=== PATIENT | female | born 1975 | race African-American/Black ===

== ENCOUNTER 2019-02-07 06:39 | Emergency (ER) | payer BC, OTHER ==
--- NOTE | 2019-02-07 07:34 | EDM.PDOC ---
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 Had pain, but was able to finish her shift. This morning pain is worse. Pain is mostly in right anterior shoulder. Radiates down arm with movement. No numbness/tingling. No history of similar injury to shoulder in past. No other complaints. Was sent to ER by work site for evaluation. Right Shoulder Pain Score (Numeric/FACES): 7 - Related Data Allergies Allergy/AdvReac Type Severity Reaction Status Date / Time lisinopril Allergy Cough Verified 02/07/19 06:40 Home Meds: Home Meds Albuterol [Proventil HFA] 2 puff INH Q4H PRN 05/23/18 [History] Losartan [Cozaar] 100 mg PO DAILY 05/23/18 [History] amLODIPine Besylate [Norvasc] 5 mg PO QPM #30 tablet 05/23/18 [Rx] diphenhydrAMINE HCl [Benadryl Allergy] 25 mg PO DAILY PRN 05/23/18 [History] Escitalopram Oxalate [Lexapro] 5 mg PO DAILY 02/07/19 [History] Temazepam 15 mg PO BEDTIME PRN 02/07/19 [History] Past Medical History HEENT History: Reports: Allergic Rhinitis. Denies: Glaucoma, Hard of Hearing, Impaired Vision, Macular Degeneration, Retinal Detachment Cardiovascular History: Reports: Hypertension, Other (See Below). Denies: Afib , Aneurysm, Arrhythmia, Blood Clots/VTE/DVT, CAD, Heart Murmur, High Cholesterol , [place], Syncope Other Cardiovascular History: Patient does not know her cholesterol status. Respiratory History: Reports: Asthma, Bronchitis, Recurrent, Intubation, Previous. Denies: COPD, Intubation, Difficult, PE, Pneumothorax, Sleep Apnea, TB Gastrointestinal History: Reports: None, Gastritis, PUD. Denies: Celiac Disease , Cholelithiasis, Chronic Constipation, Chronic Diarrhea, Fecal Incontinence, GERD, GI Bleed, Hepatitis, Hiatal Hernia, Inflammatory Bowel Disease, Irritable Bowel Syndrome, Jaundice, Pancreatitis Other Gastrointestinal History: Peptic ulcer disease as a child not currently a problem Genitourinary History: Reports: Renal Calculus, UTI, Recurrent, Other (See Below ). Denies: Acute Renal Failure, Chronic Renal Insuffiency, STD, Urinary Incontinence Other Genitourinary History: Right-sided urolithiasis in her early 30s with spontaneous passage. 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 GOVERNMENT GUARD History: Reports: Endometriosis, Other GOVERNMENT GUARD History: Full term with first with gestational diabetes and borderline macrosomia requiring at full-term with second . Surgical menopause secondary to her endometriosis. Musculoskeletal History: Reports: Arthritis, Back Pain, Chronic, Osteoarthritis. Denies: Amputation, Fracture, Gout, Neck Pain, Chronic, RA, SLE Neurological History: Reports: Headaches, Chronic, Migraines. Denies: Cerebral Aneurysms, Concussion, CVA, Head Trauma, MS, Parkinson's, Seizure, TIA, Vertigo Psychiatric History: Reports: Addiction, Anxiety, Depression, Psych Hospitalization(s), Suicide Attempt, Suicidal Ideation, Other (See Below). Denies: Abuse, Victim of, ADD, ADHD, PTSD Other Psychiatric History: Suicide attempt at age 17 with attempted overdose and required inpatient hospitalization. Illicit drug use as below between ages 19 and 28. Endocrine/Metabolic History: Reports: Diabetes, Gestational. Denies: Diabetes, Type I, Diabetes, Type II, Diabetes Mellitus, Type 3c, Hypothyroidism, IDDM Hematologic History: Reports: Anemia, Iron Deficiency, Other (See Below). Denies: Blood Transfusion(s) Other Hematologic History: Anemia with endometriosis however resolved since hysterectomy. Immunologic History: Reports: None. Denies: AIDS, HIV, SLE Oncologic (Cancer) History: Reports: None. Denies: Basal Cell Carcinoma, Cervix , Colon, Hodgkin's Lymphoma, Leukemia, Lymphoma, Malignant Melanoma, Non-Hodgkin 's Lymphoma, Ovarian, Squamous Cell Carcinoma, Uterine Dermatologic History: Reports: Eczema. Denies: Psoriasis - Infectious Disease History Infectious Disease History: Reports: Chicken Pox. Denies: C-Difficile, Measles , Meningitis, Mononucleosis, MRSA, Mumps, Pertussis (Whooping Cough), Rubella, Scarlet Fever, Shingles, TB, VRE - Past Surgical History Head Surgeries/Procedures: Reports: None HEENT Surgical History: Reports: None. Denies: Adenoidectomy, Cataract Surgery , Eye Surgery, Laser Surgery, LASIK, Myringotomy w Tube(s), Naso-Sinus Surgery, Oral Surgery, Tonsillectomy Cardiovascular Surgical History: Reports: None. Denies: Varicose Respiratory Surgical History: Reports: None. Denies: Thoracentesis Female Surgical History: Reports: Breast Biopsy, Hysterectomy, Salpingo- Oophorectomy, Tubal Ligation, Other (See Below). Denies: D&C Other Female Surgeries/Procedures: Bilateral tubal ligation at age 26. Complete hysterectomy with right-sided salpingo-oophorectomy secondary to endometriosis on 05/15/17. Endocrine Surgical History: Reports: None. Denies: Thyroid Biopsy Neurological Surgical History: Reports: None. Denies: C-Spine, Discectomy, Laminectomy, Lumbar Spine, Sacral Spine, Spinal Fusion, Thoracic Spine, Vertebroplasty Musculoskeletal Surgical History: Reports: None. Denies: Arthroscopic Procedure , Carpal Tunnel, Ganglion Cyst, Joint Replacement, ORIF, Shoulder Surgery Oncologic Surgical History: Reports: None Dermatological Surgical History: Reports: None - Past Imaging History Past Imaging History: Reports: None. Denies: Mammogram Social & Family History - Caffeine Use Caffeine Use: Reports: Soda (2 sodas per week). 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 ED EXAM, GENERAL - Physical Exam Exam: See Below Exam Limited By: No Limitations General Appearance: Alert, WD/WN, No Apparent Distress Eye Exam: Bilateral Eye: EOMI Throat/Mouth: Normal Voice, No Airway Compromise Head: Atraumatic, Normocephalic Neck: Supple, Non-Tender Respiratory/Chest: No Respiratory Distress, Lungs Clear, Normal Breath Sounds, No Accessory Muscle Use, Other (Tender over area of right pectoral muscle, reprouces pain complaint) Cardiovascular: Regular Rate, Rhythm, No Murmur GI/Abdominal: Soft, Non-Tender (Female) Exam: Deferred Rectal (Female) Exam: Deferred Back Exam: Normal Inspection. No: CVA Tenderness (L), CVA Tenderness (R), Muscle Spasm, Paraspinal Tenderness, Vertebral Tenderness Extremities: Other (patient retains full ROM of right arm/shoulder, however has to move slower through ROM exam due to pain in right anterior shoulder area. Pain with palpation over anterior deltoid area and anterior rotator cuff as well as right pec muscle. Rest of arm and posterior shoulder non-tender. Pocket Setter strength equal bilaterally. ) Neurological: Alert, Oriented, Normal Cognition, Normal Gait Psychiatric: Normal Affect, Normal Mood Skin Exam: Warm, Dry, Intact, Normal Color Course - Vital Signs Last Recorded V/S: Last Vital Signs Temp 36.8 C 02/07/19 06:45 Pulse 67 02/07/19 06:45 Resp 17 02/07/19 06:45 BP 145/90 H 02/07/19 06:45 Pulse Ox 99 02/07/19 06:45 - Orders/Labs/Meds Orders: Active Orders 24 hr Category Date Time Status Shoulder Comp Rt [CR] Stat Exams 02/07/19 06:51 Taken - Re-Assessments/Exams Free Text/Narrative Re-Assessment/Exam: Xray of shoulder unremarkable. Pending Radiology review. Suspect soft tissue injury based on history and exam. Cannot rule out tendon/ligament injury vs muscle tear. Appears to have main issue concentrated in right pectoral muscle area and where it attaches near shoulder. Conservative treatment at this time. No work until rechecked on Saturday at local clinic or if needed, Ortho walk in [facility]. Arm placed in sling for comfort of shoulder. Precautions reviewed. To follow up otherwise as needed if additional problems develop. Departure - Departure Time of Disposition: 07:32 Disposition: Home, Self-Care 01 Condition: Good Clinical Impression: Right shoulder pain - Discharge Information *PRESCRIPTION DRUG MONITORING PROGRAM REVIEWED*: Not Applicable *COPY OF PRESCRIPTION DRUG MONITORING REPORT IN PATIENT MARCE: Not Applicable Instructions: Shoulder Pain Referrals: Samantha Nassar LAUNDRY ASSISTANT [Primary Care Provider] - Forms: ED Department Discharge, ED Return to Work/School Form Additional Instructions: Wear sling for comfort. Aleve two tabs every 12 hours to help with pain and inflammation. May also take Tylenol. Do not take ibuprofen with the Aleve. Follow up Saturday for recheck locally at clinic. If you cannot get an appointment you can go to walk-in Ortho clinic in [place] at [facility] or [facility] ( [facility] has access to your xrays). They can re-examine your shoulder at that time and determine if you can return to work or if you needed additional time off and/or other imaging studies. - My Orders Last 24 Hours: My Active Orders 02/07/19 06:51 Shoulder Comp Rt [CR] Stat - Assessment/Plan Last 24 Hours: My Active Orders 02/07/19 06:51 Shoulder Comp Rt [CR] Stat
== END 2019-02-07 08:00 | disposition home or self-care (01) ==
LOC: LL.ED 06:39
DX: M25.511 Pain in right shoulder (principal); I10 Essential (primary) hypertension; Z98.51 Tubal ligation status; Z90.710 Acquired absence of both cervix and uterus; Z90.721 Acquired absence of ovaries, unilateral; F41.9 Anxiety disorder, unspecified; F32.9 Major depressive disorder, single episode, unspecified; Z79.899 Other long term (current) drug therapy; Z88.8 Allergy status to other drugs, medicaments and biological substances; X50.0XXA Overexertion from strenuous movement or load, initial encounter; Y99.0 Civilian activity done for income or pay
CPT/HCPCS: 73030-RT; 99283-25

== ENCOUNTER 2019-07-11 19:28 | Emergency (ER) | payer BC ==
[2019-07-11] MEDS ORDERED: Albuterol/Ipratropium 3.0-0.5 MG/3 ML Neb Soln NEB ONE (19:40)
[2019-07-11] MEDS ORDERED: methylPREDNISolone Sodium Succinate 125 MG/2 ML SDV IM ONE (20:09)
[2019-07-11] MEDS ORDERED: Codeine/guaiFENesin 100-10 MG/5 ML Syrup 5 ML Cup PO ONE (20:10)
[2019-07-11 20:14] LABS: CHLORIDE,CL 102 mmol/L (98-107); SODIUM,NA 141 mmol/L (136-145)
[2019-07-11] MEDS ORDERED: Benzonatate 100 MG Cap PO ONE (20:20)
[2019-07-11] MEDS ORDERED: Metoprolol Tartrate 25 MG Tab PO ONE (20:21)
--- NOTE | 2019-07-11 20:22 | EDM.PDOC ---
ED HPI GENERAL MEDICAL PROBLEM - General Chief Complaint: Asthma Stated Complaint: cough Time Seen by Provider: 07/11/19 20:03 Source of Information: Reports: Patient History Limitations: Reports: No Limitations - History of Present Illness INITIAL COMMENTS - FREE TEXT/NARRATIVE: Patient here for constant cough that started yesterday. Has asthma. Previous similar episodes experienced in past. Has Combivent at home per self report but per patient it has apparently run out and is not working. Possible URI developing. Gums are irritated/ears uncomfortable. No fever/chills. Cough is dry. No other acute changes reported. Is a daily smoker. Treatments FUNERAL HOME LOCATION MANAGER: Reports: Other (see below) Other Treatments FUNERAL HOME LOCATION MANAGER: inhailer - used this afternoon - Related Data Allergies Allergy/AdvReac Type Severity Reaction Status Date / Time lisinopril Allergy Cough Verified 07/11/19 20:01 Home Meds: Home Meds Losartan [Cozaar] 100 mg PO DAILY 05/23/18 [History] amLODIPine Besylate [Norvasc] 5 mg PO QPM #30 tablet 05/23/18 [Rx] diphenhydrAMINE HCl [Benadryl Allergy] 25 mg PO DAILY PRN 05/23/18 [History] Escitalopram Oxalate [Lexapro] 5 mg PO DAILY 02/07/19 [History] Albuterol/Ipratropium [Combivent Respimat] 4 gm IH ASDIRECTED #1 aer.w.adap [Rx] Past Medical History HEENT History: Reports: Allergic Rhinitis Cardiovascular History: Reports: Hypertension, Other (See Below) Other Cardiovascular History: Patient does not know her cholesterol status. Respiratory History: Reports: Asthma, Bronchitis, Recurrent, Intubation, Previous Gastrointestinal History: Reports: None, Gastritis, PUD Other Gastrointestinal History: Peptic ulcer disease as a child not currently a problem Genitourinary History: Reports: Renal Calculus, UTI, Recurrent, Other (See Below ) Other Genitourinary History: Right-sided urolithiasis in her early 30s with spontaneous passage. 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 Surgical menopause secondary to her endometriosis. Musculoskeletal History: Reports: Arthritis, Back Pain, Chronic, Osteoarthritis Neurological History: Reports: Headaches, Chronic, Migraines Psychiatric History: Reports: Addiction, Anxiety, Depression, Psych Hospitalization(s), Suicide Attempt, Suicidal Ideation, Other (See Below) Other Psychiatric History: Suicide attempt at age 17 with attempted overdose and required inpatient hospitalization. Illicit drug use as below between ages 19 and 28. Endocrine/Metabolic History: Reports: Diabetes, Gestational Hematologic History: Reports: Anemia, Iron Deficiency, Other (See Below) Other Hematologic History: Anemia with endometriosis however resolved since hysterectomy. Immunologic History: Reports: None Oncologic (Cancer) History: Reports: None Dermatologic History: Reports: Eczema - Infectious Disease History Infectious Disease History: Reports: Chicken Pox - Past Surgical History Head Surgeries/Procedures: Reports: None HEENT Surgical History: Reports: None Cardiovascular Surgical History: Reports: None Respiratory Surgical History: Reports: None Female Surgical History: Reports: Breast Biopsy, Hysterectomy, Salpingo- Oophorectomy, Tubal Ligation, Other (See Below) Other Female Surgeries/Procedures: Bilateral tubal ligation at age 26. Complete hysterectomy with right-sided salpingo-oophorectomy secondary to endometriosis on 05/15/17. Endocrine Surgical History: Reports: None Neurological Surgical History: Reports: None Musculoskeletal Surgical History: Reports: None Oncologic Surgical History: Reports: None Dermatological Surgical History: Reports: None - Past Imaging History Past Imaging History: Reports: None. Denies: Mammogram Social & Family History - Tobacco Use Smoking Status *Q: Current Every Day Smoker Years of Tobacco use: 6 Packs/Tins Daily: 5 Used Tobacco, but Quit: No Smoking Cessation Information Provided To Patient: Patient Refused Second Hand Smoke Exposure: Yes - Caffeine Use Caffeine Use: Reports: Soda, Tea - Alcohol Use Days Per Week of Alcohol Use: 3 Number of Drinks Per Day: 2 Total Drinks Per Week: 6 - Recreational Drug Use Recreational Drug Use: Yes Drug Use in Last 12 Months: Yes Recreational Drug Type: Reports: Marijuana/Hashish Recreational Drug Use Frequency: Not Used In Over 1 Month - Living Situation & Occupation Living situation: Reports: (In divorce proceedings), Alone (With son to be with her in about one month.) 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 Denies: Shortness of Breath, Wheezing, Pleuritic Chest Pain, Sputum, Hemoptysis Cardiovascular: Reports: No Symptoms GI/Abdominal: Reports: No Symptoms : Reports: No Symptoms Musculoskeletal: Reports: No Symptoms Skin: Reports: No Symptoms Neurological: Reports: No Symptoms Psychiatric: Reports: No Symptoms Hematologic/Lymphatic: Reports: No Symptoms ED EXAM, GENERAL - Physical Exam Exam: See Below Exam Limited By: No Limitations General Appearance: Alert, WD/WN, Other (very frequent dry cough noted. Approx one cough every 5-15 seconds. ) Eye Exam: Bilateral Eye: EOMI, PERRL Ears: Normal External Exam, Normal Canal, Hearing Grossly Normal, Normal TMs Nose: No: Nasal Deformity, Nasal Swelling, Nasal Drainage Throat/Mouth: Normal Lips, Normal Gums (no obvious swelling/redness/drainage), Normal Oropharynx, Normal Voice, No Airway Compromise Head: Atraumatic, Normocephalic Neck: Supple, Non-Tender, Full Range of Motion Respiratory/Chest: No Respiratory Distress, Lungs Clear, Normal Breath Sounds, No Accessory Muscle Use, Chest Non-Tender. No: Rhonchi, Wheezing Cardiovascular: Tachycardia. No: Systolic Murmur GI/Abdominal: Soft, Non-Tender, No Distention (Female) Exam: Deferred Rectal (Female) Exam: Deferred Back Exam: No: Muscle Spasm Extremities: Normal Range of Motion, Normal Capillary Refill Neurological: Alert, Oriented, Normal Cognition, Normal Gait Psychiatric: Normal Affect, Normal Mood Skin Exam: Warm, Dry, Intact, Normal Color Course - Vital Signs Last Recorded V/S: Last Vital Signs Temp 36.6 C 07/11/19 19:55 Pulse 105 H 07/11/19 20:12 Resp 20 07/11/19 19:55 BP 156/113 H 07/11/19 20:12 Pulse Ox 99 07/11/19 19:34 - Orders/Labs/Meds Orders: Active Orders 24 hr Category Date Time Status RT Aerosol Therapy [RC] ASDIRECTED Care 07/11/19 19:40 Active CXR [Chest 2V] [CR] Stat Exams 07/11/19 19:40 Ordered Labs: Laboratory Tests 07/11/19 07/11/19 Range/Units 19:50 19:50 WBC 12.9 H (4.0-10.2) K/uL RBC 4.64 (3.77-5.09) M/uL Hgb 13.9 (11.7-15.5) g/dL Hct 40.5 (34.0-46.0) % MCV 87.3 D (84.0-98.0) fL MCH 30.0 (28.2-33.3) pg MCHC 34.3 (31.7-36.0) g/dL RDW 12.6 (11.2-14.1) % Plt Count 292 (150-350) K/uL Neut % (Auto) 50.2 (45.0-80.0) % Lymph % (Auto) 43.8 (10.0-50.0) % [place] % (Auto) 5.6 (2.0-14.0) % Eos % (Auto) 0.2 (0.0-5.0) % Baso % (Auto) 0.2 (0.0-2.0) % Neut # (Auto) 6.46 (1.40-7.00) K/uL Lymph # (Auto) 5.64 H (0.50-3.50) K/uL [place] # (Auto) 0.72 (0.00-1.00) K/uL Eos # (Auto) 0.03 (0.00-0.50) K/uL Baso # (Auto) 0.02 (0.00-0.20) K/uL Sodium 141 (136-145) mmol/L Potassium 3.5 (3.5-5.1) mmol/L Chloride 102 (98-107) mmol/L Carbon Dioxide 23.2 (21.0-32.0) mmol/L BUN 16 (7-18) mg/dL Creatinine 0.71 (0.51-1.17) mg/dL Est Cr Clr Drug Dosing 93.83 mL/min Estimated GFR (MDRD) > 60 mL/min Glucose 154 H (74-106) mg/dL Calcium 9.5 (8.5-10.1) mg/dL Total Bilirubin 0.5 (0.2-1.0) mg/dL AST 63 H (15-37) U/L ALT 41 (12-78) U/L Alkaline Phosphatase 104 (46-116) IU/L Total Protein 8.0 (6.4-8.2) g/dL Albumin 4.0 (3.4-5.0) g/dL Meds: Medications Discontinued Medications Generic Name Dose Route Start Last Admin Trade Name Magda PRN Reason Stop Dose Admin Albuterol/Ipratropium 3 ml 07/11/19 19:40 07/11/19 19:45 Duoneb 3.0-0.5 Mg/3 Ml NEB 07/11/19 19:41 3 ml ONETIME ONE Administration Benzonatate 200 mg 07/11/19 20:20 Tessalon Perles PO 07/11/19 20:21 ONETIME ONE Guaifenesin/Codeine Phosphate 5 ml 07/11/19 20:10 07/11/19 20:14 Robitussin Ac PO 07/11/19 20:11 5 ml ONETIME ONE Administration Methylprednisolone Sodium Succinate 125 mg 07/11/19 20:09 07/11/19 20:14 Solu-Medrol IM 07/11/19 20:10 125 mg ONETIME ONE Administration Metoprolol Tartrate 25 mg 07/11/19 20:21 Lopressor PO 07/11/19 20:22 ONETIME ONE - Radiology Interpretation Free Text/Narrative:: Chest xray did not show focal infiltrate or other obvious acute changes. - Re-Assessments/Exams Free Text/Narrative Re-Assessment/Exam: Basic labs and chest xray ordered. Mild increase in WBC. BS also a bit elevated. Chest xray clear. DuoNeb given. No significant change in cough observed. Patient not noted to be wheezing at all. No stridor. BP elevated/ increased HR. Patient admitted to not taking her BP meds since cough started. Suspect patient may be developing URI given cough/ear discomfort. She reports that steroids have helped the cough in similar situations in past and asked if she could get IM steroid. Solumedrol ordered. Also given dose of Tessalon and Robitussin AC. 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 Single dose of Lopressor given to help BP. Suspect BP increased due to not taking her BP meds over the last 24 hours and due to stress of chronic coughing. Patient instructed to take her BP meds as instructed tonight/in AM. Precautions reviewed. No work tonight. To follow up as needed if further problems develop or if cough does not improve within 24-48 hours. Departure - Departure Time of Disposition: 20:28 Disposition: Home, Self-Care 01 Condition: Good Clinical Impression: Cough variant asthma Hypertension Qualifiers: Hypertension type: essential hypertension Qualified Code(s): I10 - Essential ( primary) hypertension - Discharge Information *PRESCRIPTION DRUG MONITORING PROGRAM REVIEWED*: Not Applicable *COPY OF PRESCRIPTION DRUG MONITORING REPORT IN PATIENT MARCE: Not Applicable Prescriptions: Albuterol/Ipratropium [Combivent Respimat] 4 gm IH ASDIRECTED #1 aer.w.adap Referrals: Samantha Nassar, MOLD TOOLER [Primary Care Provider] - Forms: ED Department Discharge, ED Return to Work/School Form Additional Instructions: No work tonight. See if the cough medications and steroid you received tonight help improve the cough. supervisor liquid yeast your inhaler on Saturday. Follow up as needed if problems persist/worsen. TAKE YOUR BP MEDS! Have your blood pressure rechecked 3 times on 3 different days next week. If still elevated, follow up with your primary provider. Sepsis Event Note - Evaluation Sepsis Screening Result: No Definite Risk - Focused Exam Vital Signs: Vital Signs Temp Pulse Resp BP Pulse Ox 07/11/19 20:12 105 H 156/113 H 07/11/19 19:55 36.6 C 98 20 152/102 H 07/11/19 19:34 36.6 C 112 H 20 152/102 H 99 Date Exam was Performed: 07/11/19 Time Exam was Performed: 20:29 - My Orders Last 24 Hours: My Active Orders 07/11/19 19:40 RT Aerosol Therapy [RC] ASDIRECTED CXR [Chest 2V] [CR] Stat - Assessment/Plan Last 24 Hours: My Active Orders 07/11/19 19:40 RT Aerosol Therapy [RC] ASDIRECTED CXR [Chest 2V] [CR] Stat
== END 2019-07-11 20:37 | disposition home or self-care (01) ==
LOC: LL.ED 19:28
DX: J45.909 Unspecified asthma, uncomplicated (principal); I10 Essential (primary) hypertension; F41.9 Anxiety disorder, unspecified; F32.9 Major depressive disorder, single episode, unspecified; F17.210 Nicotine dependence, cigarettes, uncomplicated; D50.9 Iron deficiency anemia, unspecified; E11.9 Type 2 diabetes mellitus without complications; Z79.899 Other long term (current) drug therapy; Z88.8 Allergy status to other drugs, medicaments and biological substances
CPT/HCPCS: 36415; 71046; 80053; 85025; 94640; 96372; 99284-25; A9270-GY; J2930; J7620-GY

== ENCOUNTER 2019-11-10 01:01 | Emergency (ER) | payer BC ==
[2019-11-10 01:46] LABS: CHLORIDE,CL 105 mmol/L (98-107); SODIUM,NA 143 mmol/L (136-145)
--- NOTE | 2019-11-10 02:03 | EDM.PDOC ---
ED HPI GENERAL MEDICAL PROBLEM - General Chief Complaint: Upper Extremity Injury/Pain Stated Complaint: right wrist/hand swelling and pain Time Seen by Provider: 11/10/19 01:33 Source of Information: Reports: Patient History Limitations: Reports: No Limitations - History of Present Illness INITIAL COMMENTS - FREE TEXT/NARRATIVE: gradually worsening loss of function/extension ability right hand and fingers starting . Mild numbness/discomfort lateral hand and 5th finger. No history of similar issues in past. Did have her anxiety meds changed recently and spent the entire day Saturday sleeping, saying she lost an entire day due to the effect of the meds. Denies mixing alcohol with the meds. Notes mild swelling of hand. Discomfort does not radiate up arm. No fall or injury that she is aware of. Treatments REFUND SPECIALIST: Reports: Cold Therapy, Home Treatments, Other Medication(s), Splint(s) Right Wrist Pain Score (Numeric/FACES): 7 - Related Data Allergies Allergy/AdvReac Type Severity Reaction Status Date / Time lisinopril Allergy Cough Verified 11/10/19 01:02 Home Meds: Home Meds Losartan [Cozaar] 100 mg PO DAILY 05/23/18 [History] amLODIPine Besylate [Norvasc] 5 mg PO QPM #30 tablet 05/23/18 [Rx] Albuterol/Ipratropium [Combivent Respimat] 4 gm IH ASDIRECTED #1 aer.w.adap [Rx] Aspirin 500 gm MC ASDIRECTED 11/10/19 [History] LORazepam [Ativan] 0.5 mg PO BID 11/10/19 [History] Prazosin HCl [Prazosin] 5 mg PO DAILY 11/10/19 [History] Sertraline [Zoloft] 25 mg PO DAILY 11/10/19 [History] Past Medical History HEENT History: Reports: Allergic Rhinitis Cardiovascular History: Reports: Hypertension, Other (See Below) Other Cardiovascular History: Patient does not know her cholesterol status. Respiratory History: Reports: Asthma, Bronchitis, Recurrent, Intubation, Previous Gastrointestinal History: Reports: None, Gastritis, PUD Other Gastrointestinal History: Peptic ulcer disease as a child not currently a problem Genitourinary History: Reports: Renal Calculus, UTI, Recurrent, Other (See Below ) Other Genitourinary History: Right-sided urolithiasis in her early 30s with spontaneous passage. 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 UX DESIGN MANAGER History: Reports: Endometriosis, Other UX DESIGN MANAGER History: Full term with first with gestational diabetes and borderline macrosomia requiring at full-term with second . Surgical menopause secondary to her endometriosis. Musculoskeletal History: Reports: Arthritis, Back Pain, Chronic, Osteoarthritis Neurological History: Reports: Headaches, Chronic, Migraines Psychiatric History: Reports: Addiction, Anxiety, Depression, Psych Hospitalization(s), Suicide Attempt, Suicidal Ideation, Other (See Below) Other Psychiatric History: Suicide attempt at age 17 with attempted overdose and required inpatient hospitalization. Illicit drug use as below between ages 19 and 28. Endocrine/Metabolic History: Reports: Diabetes, Gestational Hematologic History: Reports: Anemia, Iron Deficiency, Other (See Below) Other Hematologic History: Anemia with endometriosis however resolved since hysterectomy. Immunologic History: Reports: None Oncologic (Cancer) History: Reports: None Dermatologic History: Reports: Eczema - Infectious Disease History Infectious Disease History: Reports: Chicken Pox - Past Surgical History Head Surgeries/Procedures: Reports: None HEENT Surgical History: Reports: None Cardiovascular Surgical History: Reports: None Respiratory Surgical History: Reports: None Female Surgical History: Reports: Breast Biopsy, Hysterectomy, Salpingo- Oophorectomy, Tubal Ligation, Other (See Below) Other Female Surgeries/Procedures: Bilateral tubal ligation at age 26. Complete hysterectomy with right-sided salpingo-oophorectomy secondary to endometriosis on 05/15/17. Endocrine Surgical History: Reports: None Neurological Surgical History: Reports: None Musculoskeletal Surgical History: Reports: None Oncologic Surgical History: Reports: None Dermatological Surgical History: Reports: None - Past Imaging History Past Imaging History: Reports: None. 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 ED EXAM, GENERAL - Physical Exam Exam: See Below Exam Limited By: No Limitations General Appearance: Alert, WD/WN, No Apparent Distress Eye Exam: Bilateral Eye: EOMI, PERRL Ears: Hearing Grossly Normal Nose: No: Nasal Deformity, Nasal Swelling, Nasal Drainage Throat/Mouth: Normal Lips, Normal Voice, No Airway Compromise Head: Atraumatic, Normocephalic Neck: Supple Respiratory/Chest: No Respiratory Distress, Lungs Clear Cardiovascular: Regular Rate, Rhythm Peripheral Pulses: 2+: Radial (L), Radial (R) GI/Abdominal: Soft (Female) Exam: Deferred Rectal (Female) Exam: Deferred Extremities: Other (Patient instructed to hold out affected right arm straight in front of her. Unable to extend hand which hung in relaxed/flexed position. Sensation appeared intact except for mild numbness lateral hand near wrist. Minimal puffiness of right hand noted when compared to left. Difficulty extending fingers also. Able to move right shoulder and elbow without issue. Left upper limb unremarkable as were lower extremities. ) Neurological: Alert, Oriented Psychiatric: Normal Affect, Normal Mood Course - Vital Signs Last Recorded V/S: Last Vital Signs Temp 36.1 C 11/10/19 01:02 Pulse 78 11/10/19 01:02 Resp 18 11/10/19 01:02 BP 168/85 H 11/10/19 01:02 Pulse Ox 100 11/10/19 01:02 - Orders/Labs/Meds Orders: Active Orders 24 hr Category Date Time Status Wrist Comp Min 3V Rt [CR] Stat Exams 11/10/19 01:12 Taken Labs: Laboratory Tests 11/10/19 11/10/19 11/10/19 Range/Units 01:25 01:25 01:25 WBC 11.1 H (4.0-10.2) K/uL RBC 4.24 (3.77-5.09) M/uL Hgb 13.0 (11.7-15.5) g/dL Hct 38.6 (34.0-46.0) % MCV 91.0 (84.0-98.0) fL MCH 30.7 (28.2-33.3) pg MCHC 33.7 (31.7-36.0) g/dL RDW 12.4 (11.2-14.1) % Plt Count 254 (150-350) K/uL Neut % (Auto) 56.1 (45.0-80.0) % Lymph % (Auto) 39.3 (10.0-50.0) % Fisher % (Auto) 4.1 (2.0-14.0) % Eos % (Auto) 0.3 (0.0-5.0) % Baso % (Auto) 0.2 (0.0-2.0) % Neut # (Auto) 6.24 (1.40-7.00) K/uL Lymph # (Auto) 4.36 H (0.50-3.50) K/uL Fisher # (Auto) 0.45 (0.00-1.00) K/uL Eos # (Auto) 0.03 (0.00-0.50) K/uL Baso # (Auto) 0.02 (0.00-0.20) K/uL PT 9.3 L (9.5-12.0) SEC INR 0.9 Sodium 143 (136-145) mmol/L Potassium 3.7 (3.5-5.1) mmol/L Chloride 105 (98-107) mmol/L Carbon Dioxide 28.2 (21.0-32.0) mmol/L BUN 14 (7-18) mg/dL Creatinine 0.70 (0.51-1.17) mg/dL Est Cr Clr Drug Dosing TNP Estimated GFR (MDRD) > 60 mL/min Glucose 140 H (74-106) mg/dL Calcium 8.6 (8.5-10.1) mg/dL Total Bilirubin 0.2 (0.2-1.0) mg/dL AST 21 (15-37) U/L ALT 40 (12-78) U/L Alkaline Phosphatase 100 (46-116) IU/L Total Protein 7.2 (6.4-8.2) g/dL Albumin 3.6 (3.4-5.0) g/dL - Re-Assessments/Exams Free Text/Narrative Re-Assessment/Exam: Suspect acute radial nerve palsy of right arm secondary to poor positioning when patient was excessively somnolent this past Saturday due to her medications. Prefab splint provided to patient for support. Time spend discussing overmedication/avoidance of taking extra medication/avoidance of mixing anything with meds such as ETOH as this can make somnolence worse and place her at risk for similar complications in future. Close follow up with psych/primary provider encouraged to have meds adjusted to avoid excessive somnolence. To follow up with primary provider this week to discuss referral to Neurology and if needed, a hand specialist to ensure proper follow up planning. Will also need referral to PT. Patient agreeable with plan. Currently off work due to her complaint of worsening anxiety secondary to Covid 19 and does not need work slip. Departure - Departure Time of Disposition: 01:55 Disposition: Home, Self-Care 01 Clinical Impression: Acute radial nerve palsy of right upper extremity - Discharge Information *PRESCRIPTION DRUG MONITORING PROGRAM REVIEWED*: Not Applicable *COPY OF PRESCRIPTION DRUG MONITORING REPORT IN PATIENT MARCE: Not Applicable Instructions: Radial Nerve Palsy Referrals: Samantha Nassar SHEET METAL FORMER [Primary Care Provider] - Forms: ED Department Discharge, ED Return to Work/School Form Additional Instructions: Wear brace for support. Make a follow up appointment for the clinic to be seen. If this is due to radial nerve damage you will need continued follow up as well as referral to physical therapy and also neurology and possibly a hand specialist. You have an order for an US study to look at blood flow to the hand. You can go ahead and schedule that or wait until you see the clinic later today or tomorrow. Discuss med changes that may help avoid similar situation that you had with excessive sleepiness last Saturday. Continue to observe for changes and follow up as needed/call with questions. Sepsis Event Note - Evaluation Sepsis Screening Result: No Definite Risk - Focused Exam Date Exam was Performed: 11/10/19 Time Exam was Performed: 20:04 - My Orders Last 24 Hours: My Active Orders 11/10/19 01:12 Wrist Comp Min 3V Rt [CR] Stat - Assessment/Plan Last 24 Hours: My Active Orders 11/10/19 01:12 Wrist Comp Min 3V Rt [CR] Stat
== END 2019-11-10 02:28 | disposition home or self-care (01) ==
LOC: LL.ED 01:01
DX: G56.31 Lesion of radial nerve, right upper limb (principal); I10 Essential (primary) hypertension; J45.909 Unspecified asthma, uncomplicated; M19.90 Unspecified osteoarthritis, unspecified site; F41.9 Anxiety disorder, unspecified; F32.9 Major depressive disorder, single episode, unspecified; G43.909 Migraine, unspecified, not intractable, without status migrainosus; Z90.710 Acquired absence of both cervix and uterus; Z88.8 Allergy status to other drugs, medicaments and biological substances; Z79.899 Other long term (current) drug therapy; Z79.82 Long term (current) use of aspirin
CPT/HCPCS: 36415; 73110-RT; 80053; 85025; 85610; 99283-25

== ENCOUNTER 2020-08-07 18:30 | Emergency (ER) | payer BC ==
[2020-08-07 18:34] VITALS: BP 132/79; PULSE 88
--- NOTE | 2020-08-07 19:12 | EDM.PDOC ---
ED HPI GENERAL MEDICAL PROBLEM - General Chief Complaint: Lower Extremity Injury/Pain Stated Complaint: RLE pain Time Seen by Provider: 08/07/20 18:50 Source of Information: Reports: Patient History Limitations: Reports: No Limitations - History of Present Illness INITIAL COMMENTS - FREE TEXT/NARRATIVE: She is seen in the emergency department for evaluation of an injury to her right lower leg. She was walking out to her car this afternoon and slipped on the ice. She is not sure exactly what happened but she ended up partway underneath her vehicle. She complains of pain in the anterior medial aspect of the mid boyce, right lower leg. No significant pain in the knee or ankle. She is aching pain at rest. Increased pain with weightbearing. She does have significant te nderness in the area. She denies any other injury. She denies dizziness or lightheadedness. No chest pain or tightness. No back or neck pain. No abdominal pain. No shortness of breath or cough. right knee Pain Score (Numeric/FACES): 7 - Related Data Allergies Allergy/AdvReac Type Severity Reaction Status Date / Time lisinopril Allergy Cough Verified 08/07/20 18:34 Home Meds: Home Meds Losartan [Cozaar] 100 mg PO DAILY 05/23/18 [History] amLODIPine Besylate [Norvasc] 5 mg PO QPM #30 tablet 05/23/18 [Rx] Albuterol/Ipratropium [Combivent Respimat] 4 gm IH ASDIRECTED #1 aer.w.adap 07/11/19 [Rx] Past Medical History HEENT History: Reports: Allergic Rhinitis Cardiovascular History: Reports: Hypertension, Other (See Below) Other Cardiovascular History: Patient does not know her cholesterol status. Respiratory History: Reports: Asthma, Bronchitis, Recurrent, Intubation, Previous Gastrointestinal History: Reports: None, Gastritis, PUD Other Gastrointestinal History: Peptic ulcer disease as a child not currently a problem Genitourinary History: Reports: Renal Calculus, UTI, Recurrent, Other (See Below) Other Genitourinary History: Right-sided urolithiasis in her early 30s with spontaneous passage. 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 NUT SIFTER History: Reports: Endometriosis, Other NUT SIFTER History: Full term with first with gestational diabetes and borderline macrosomia requiring at full-term with second . Surgical menopause secondary to her endometriosis. Musculoskeletal History: Reports: Arthritis, Back Pain, Chronic, Osteoarthritis Neurological History: Reports: Headaches, Chronic, Migraines Psychiatric History: Reports: Addiction, Anxiety, Depression, Psych Hospitalization(s), Suicide Attempt, Suicidal Ideation, Other (See Below) Other Psychiatric History: Suicide attempt at age 17 with attempted overdose and required inpatient hospitalization. Illicit drug use as below between ages 19 and 28. Endocrine/Metabolic History: Reports: Diabetes, Gestational Hematologic History: Reports: Anemia, Iron Deficiency, Other (See Below) Other Hematologic History: Anemia with endometriosis however resolved since hysterectomy. Immunologic History: Reports: None Oncologic (Cancer) History: Reports: None Dermatologic History: Reports: Eczema - Infectious Disease History Infectious Disease History: Reports: Chicken Pox - Past Surgical History Head Surgeries/Procedures: Reports: None HEENT Surgical History: Reports: None Cardiovascular Surgical History: Reports: None Respiratory Surgical History: Reports: None Female Surgical History: Reports: Breast Biopsy, Hysterectomy, Salpingo- Oophorectomy, Tubal Ligation, Other (See Below) Other Female Surgeries/Procedures: Bilateral tubal ligation at age 26. Complete hysterectomy with right-sided salpingo-oophorectomy secondary to endometriosis on 05/15/17. Endocrine Surgical History: Reports: None Neurological Surgical History: Reports: None Musculoskeletal Surgical History: Reports: None Oncologic Surgical History: Reports: None Dermatological Surgical History: Reports: None - Past Imaging History Past Imaging History: Reports: None. 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[employer].) Review of Systems - Review of Systems Review Of Systems: See Below Constitutional: Denies: Chills, Fever Ears: Denies: Dizziness, Pain Nose: Denies: Congestion, Pain Mouth/Throat: Denies: Pain Respiratory: Denies: Shortness of Breath, Cough Cardiovascular: Denies: Chest Pain, Palpitations GI/Abdominal: Denies: Abdominal Pain, Nausea, Vomiting Genitourinary: Denies: Dysuria Musculoskeletal: Reports: Leg Pain Skin: Denies: Wound Neurological: Denies: Confusion, Dizziness, Headache, Numbness Psychiatric: Denies: Confusion ED EXAM, GENERAL - Physical Exam Exam: See Below Exam Limited By: No Limitations General Appearance: Alert, WD/WN Head: Atraumatic, Normocephalic Neck: Normal Inspection, Non-Tender, Full Range of Motion Respiratory/Chest: No Respiratory Distress, Lungs Clear, Normal Breath Sounds Cardiovascular: Regular Rate, Rhythm, No Murmur Extremities: Other (Right lower leg: No swelling or deformity. No discoloration. Diffuse mild tenderness in the anterior aspect of the boyce in the middle one third. No significant posterior tenderness. No palpable defect. No point tenderness. No significant pain with movement of the knee or ankle. Exam of the right knee and right ankle show normal swelling, deformity, discoloration, tenderness, or limitations of motion. Left knee, boyce and ankle are all completely were unremarkable.) Course - Vital Signs Last Recorded V/S: Last Vital Signs Temp 35.7 C L 08/07/20 18:31 Pulse 88 08/07/20 18:31 Resp 16 08/07/20 18:31 BP 132/79 08/07/20 18:31 Pulse Ox 100 08/07/20 18:31 - Orders/Labs/Meds Orders: Active Orders 24 hr Category Date Time Status Tibia Fibula Rt [CR] Stat Exams 08/07/20 18:46 Taken - Radiology Interpretation Free Text/Narrative:: AP and lateral views of the right tib-fib show normal bony alignment. No fractures. No cystic or lytic changes. Impression: Normal tib-fib. Departure - Departure Time of Disposition: 19:12 Disposition: Home, Self-Care 01 Condition: Good Clinical Impression: Contusion of right lower leg, initial encounter - Discharge Information *PRESCRIPTION DRUG MONITORING PROGRAM REVIEWED*: Not Applicable *COPY OF PRESCRIPTION DRUG MONITORING REPORT IN PATIENT MARCE: Not Applicable Referrals: Marilyn Armioj NP [Primary Care Provider] - Forms: ED Department Discharge Additional Instructions: Apply ice to the lower leg for 15 minutes 3-4 times daily. Ibuprofen 800 mg 3 times daily with food for 5 days. Tylenol as needed for additional pain control. Okay for full activity as tolerated by pain. Follow-up if not improving over the next 1 to 2 weeks. Sepsis Event Note (ED) - Evaluation Sepsis Screening Result: No Definite Risk - Focused Exam Vital Signs: Vital Signs Temp Pulse Resp BP Pulse Ox 08/07/20 18:31 35.7 C L 88 16 132/79 100 - Problem List & Annotations (1) Contusion of right lower leg, initial encounter SNOMED Code(s): 58884644317578360 Code(s): S80.11XA - CONTUSION OF RIGHT LOWER LEG, INITIAL ENCOUNTER Status: Acute - My Orders Last 24 Hours: My Active Orders 08/07/20 18:46 Tibia Fibula Rt [CR] Stat - Assessment/Plan Last 24 Hours: My Active Orders 08/07/20 18:46 Tibia Fibula Rt [CR] Stat Assessment:: Contusion right lower leg Plan: Discussed findings and treatment options. Apply ice to the lower leg for 15 minutes 3-4 times daily. Ibuprofen 800 mg 3 times daily with food for 5 days. Tylenol as needed for additional pain control. Okay for full activity as tolerated by pain. Follow-up if not improving over the next 1 to 2 weeks.
== END 2020-08-07 19:15 | disposition home or self-care (01) ==
LOC: LL.ED 18:30
DX: S80.11XA Contusion of right lower leg, initial encounter (principal); J45.909 Unspecified asthma, uncomplicated; I10 Essential (primary) hypertension; Z79.899 Other long term (current) drug therapy; Z88.8 Allergy status to other drugs, medicaments and biological substances; W00.0XXA Fall on same level due to ice and snow, initial encounter
CPT/HCPCS: 73590-RT; 99282; 99283-25

== ENCOUNTER 2021-04-23 17:09 | Emergency (ER) | payer BC ==
--- NOTE | 2021-04-23 17:53 | EDM.PDOC ---
ED HPI GENERAL MEDICAL PROBLEM - General Chief Complaint: Respiratory Problem Stated Complaint: sore throat, cough, SOB Time Seen by Provider: 04/23/21 17:25 Source of Information: Reports: Patient History Limitations: Reports: No Limitations - History of Present Illness INITIAL COMMENTS - FREE TEXT/NARRATIVE: Patient comes emergency department today with complaints of a cough sore throat. This patient for about the past 3 to 4 days has had a itchy scratchy sore throat and nonproductive cough. She has tightness in her chest is consistent with a typical asthma flare for her. She has been using her asthmatic controllers as well as her as needed nebulizers without much improvement. She has not had any fever or chills. No chest pain other than the tightness. No difficulty breathing. 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 No diarrhea nausea vomiting. No loss of taste or smell. She has had quite a bit of sinus congestion and drainage as well. - Related Data Allergies Allergy/AdvReac Type Severity Reaction Status Date / Time lisinopril Allergy Cough Verified 04/23/21 17:15 Home Meds: Home Meds Losartan [Cozaar] 100 mg PO DAILY 05/23/18 [History] amLODIPine Besylate [Norvasc] 5 mg PO QPM #30 tablet 05/23/18 [Rx] Albuterol/Ipratropium [Combivent Respimat] 4 gm IH ASDIRECTED #1 aer.w.adap 07/11/19 [Rx] Insulin Glarg,Human.Rec.Analog [Lantus] 10 unit SUBCUT DAILY 04/23/21 [History] Past Medical History HEENT History: Reports: Allergic Rhinitis Cardiovascular History: Reports: Hypertension, Other (See Below) Other Cardiovascular History: Patient does not know her cholesterol status. Respiratory History: Reports: Asthma, Bronchitis, Recurrent, Intubation, Previous Gastrointestinal History: Reports: None, Gastritis, PUD Other Gastrointestinal History: Peptic ulcer disease as a child not currently a problem Genitourinary History: Reports: Renal Calculus, UTI, Recurrent, Other (See Below) Other Genitourinary History: Right-sided urolithiasis in her early 30s with spontaneous passage. 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 HAIR WEAVER History: Reports: Endometriosis, Other HAIR WEAVER History: Full term with first with gestational diabetes and borderline macrosomia requiring at full-term with second . Surgical menopause secondary to her endometriosis. Musculoskeletal History: Reports: Arthritis, Back Pain, Chronic, Osteoarthritis Neurological History: Reports: Headaches, Chronic, Migraines Psychiatric History: Reports: Addiction, Anxiety, Depression, Psych Hospitalization(s), Suicide Attempt, Suicidal Ideation, Other (See Below) Other Psychiatric History: Suicide attempt at age 17 with attempted overdose and required inpatient hospitalization. Illicit drug use as below between ages 19 and 28. Endocrine/Metabolic History: Reports: Diabetes, Gestational Hematologic History: Reports: Anemia, Iron Deficiency, Other (See Below) Other Hematologic History: Anemia with endometriosis however resolved since hys terectomy. Immunologic History: Reports: None Oncologic (Cancer) History: Reports: None Dermatologic History: Reports: Eczema - Infectious Disease History Infectious Disease History: Reports: Chicken Pox - Past Surgical History Head Surgeries/Procedures: Reports: None HEENT Surgical History: Reports: None Cardiovascular Surgical History: Reports: None Respiratory Surgical History: Reports: None Female Surgical History: Reports: Breast Biopsy, Hysterectomy, Salpingo- Oophorectomy, Tubal Ligation, Other (See Below) Other Female Surgeries/Procedures: Bilateral tubal ligation at age 26. Complete hysterectomy with right-sided salpingo-oophorectomy secondary to endometriosis on 05/15/17. Endocrine Surgical History: Reports: None Neurological Surgical History: Reports: None Musculoskeletal Surgical History: Reports: None Oncologic Surgical History: Reports: None Dermatological Surgical History: Reports: None - Past Imaging History Past Imaging History: Reports: None. Denies: Mammogram Social & Family History - Family History Family Medical History: No Pertinent Family History - Caffeine Use Caffeine Use: Reports: Soda, Tea - Living Situation & Occupation Living situation: Reports: (In divorce proceedings), Alone (With son to be with her in about one month.) Occupation: Employed ([employer] at [employer].) ED ROS GENERAL - Review of Systems Review Of Systems: Comprehensive ROS is negative, except as noted in HPI. ED EXAM, GENERAL - Physical Exam Exam: See Below Exam Limited By: Altered Mental Status General Appearance: Alert, WD/WN, No Apparent Distress Eye Exam: Bilateral Eye: EOMI, PERRL Ears: Normal External Exam, Normal TMs Nose: Nasal Swelling (Quite pale boggy turbinates. Copious amounts of clear rhinorrhea.), Clear Rhinorrhea Throat/Mouth: Normal Inspection, Normal Lips, Normal Teeth, Normal Gums, Normal Voice, No Airway Compromise. No: Normal Oropharynx (Posterior pharynx with vttb-glcemr-xbsllxt vesicles and cobblestoning consistent with postnasal drip. Tonsils are unremarkable. No erythema induration injection exudate) Head: Atraumatic, Normocephalic Neck: Normal Inspection, Supple Respiratory/Chest: No Respiratory Distress, No Accessory Muscle Use, Chest Non- Tender, Wheezing (Some faint expiratory wheezing. No increased work of breathing.) Peripheral Pulses: 2+: Radial (L), Radial (R), Posterior Tibial (L), Posterior Tibial (R), Dorsalis Pedis (L), Dorsalis Pedis (R) GI/Abdominal: Normal Bowel Sounds, Soft, Non-Tender (Female) Exam: Deferred Rectal (Female) Exam: Deferred Back Exam: Normal Inspection Extremities: Normal Inspection Neurological: Alert, Oriented, Normal Cognition, Normal Gait, No Motor/Sensory Deficits Psychiatric: Normal Affect, Normal Mood Skin Exam: Warm, Dry, Intact, Normal Color, No Rash Course - Vital Signs Last Recorded V/S: Last Vital Signs Temp 97.7 F 04/23/21 17:09 Pulse 87 04/23/21 17:09 Resp 20 04/23/21 17:09 BP 138/83 04/23/21 17:09 Pulse Ox 99 04/23/21 17:09 - Re-Assessments/Exams Free Text/Narrative Re-Assessment/Exam: 04/23/21 18:07 This patient just recently had a Covid test that was negative and she has no other symptomology consistent with it. She is not in any distress at this time. She was given some prednisone in the emergency department. We will keep treat her acute sinusitis which is most likely allergic as well as her mild exacerbation of her asthma with prednisone. And is on was dispensed from the emergency department. She is comfortable with this plan and her questions are answered. Departure - Departure Time of Disposition: 17:50 Disposition: Home, Self-Care 01 Clinical Impression: Asthma exacerbation, mild Acute sinusitis Qualifiers: Sinusitis location: unspecified location Recurrence: not specified as recurrent Qualified Code(s): J01.90 - Acute sinusitis, unspecified - Discharge Information Instructions: Sinusitis, Adult, [id number], How to Perform a Sinus Rinse, [id number], Asthma, Adult, [id number] Referrals: PCP,None [Primary Care Provider] - Forms: ED Department Discharge Additional Instructions: Prednisone 20mg daily for the next 5 days. Bottle dispensed from the ED. OTC Netti Pot rinse to the nose twice daily. Flonase OTC 1 spray each nostril twice daily for a week and then 1 spray each nostril daily as needed. Continue other previous medications and inhalers. Return to the ED if new or worsening symptoms. Follow up with PCP in the next 4-6 days if not improving sooner if worse. Sepsis Event Note (ED) - Evaluation Sepsis Screening Result: No Definite Risk - Focused Exam Vital Signs: Vital Signs Temp Pulse Resp BP Pulse Ox 04/23/21 17:09 97.7 F 87 20 138/83 99
== END 2021-04-23 18:00 | disposition home or self-care (01) ==
LOC: LL.ED 17:09
DX: J45.901 Unspecified asthma with (acute) exacerbation (principal); J01.90 Acute sinusitis, unspecified; I10 Essential (primary) hypertension; Z88.8 Allergy status to other drugs, medicaments and biological substances; Z79.899 Other long term (current) drug therapy
CPT/HCPCS: 99283; 99284